=== PATIENT | female | born 1965 ===

== ENCOUNTER 2022-05-30 05:33 | Day surgery (SDC) | payer OTHER ==
[~2022-05-30] VITALS: Ht 160 cm; Wt 120.2 kg
[~2022-05-30 05:33] MED LIST: GLUMETZA500 MG PO; HORIZANT300 MG PO; LIPITO PO; LOSARTAN-HCTZ1 EAC2 PO; NOVOLIN 70100 UNIT/1; TOPROL XL50 M1 PO; [UNRECOGNIZED DRUG - OTHER]
== END 2022-05-30 14:30 | disposition home or self-care (01) ==
LOC: CIR.AMB 05:33
PROVIDERS: ATTEND Obstetrics & Gynecology
DX: D25.9 Leiomyoma of uterus, unspecified (principal); Z20.822 Contact with and (suspected) exposure to COVID-19; I10 Essential (primary) hypertension; Z86.16 Personal history of COVID-19; K21.9 Gastro-esophageal reflux disease without esophagitis